=== PATIENT | male | born 1995 | race Caucasian/White ===

== ENCOUNTER 2017-05-01 18:39 | Emergency (ER) | payer BC ==
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
--- NOTE | 2017-05-01 19:35 | RAD ---
INDICATION: Trauma. TECHNIQUE: 2 views of the right forearm and 4 views of the right hand were obtained. FINDINGS: There is a minimally displaced and slightly shortened fracture at the right ulnar diaphysis. On the lateral view the distal fracture pole is displaced approximately one cortex width in the palmar direction relative to the proximal fracture pole. The remaining visualized bones are otherwise intact and appropriately aligned. No acute fracture or dislocation is visualized overlying the right hand. IMPRESSION: Minimally displaced fracture of the ulnar diaphysis.
[2017-05-01 20:12] VITALS: BP 132/84
== END 2017-05-01 20:09 | disposition home or self-care (01) ==
LOC: UCEAST 18:39
DX: S52.601A Unspecified fracture of lower end of right ulna, initial encounter for closed fracture (principal); S60.511A Abrasion of right hand, initial encounter; S60.811A Abrasion of right wrist, initial encounter; S50.311A Abrasion of right elbow, initial encounter; V29.9XXA Motorcycle rider (driver) (passenger) injured in unspecified traffic accident, initial encounter; Y93.89 Activity, other specified; Y92.9 Unspecified place or not applicable; Z88.1 Allergy status to other antibiotic agents
CPT/HCPCS: 25605; 99203; G0463

== ENCOUNTER 2018-04-16 16:49 | Emergency (ER) | payer BC ==
[2018-04-16 16:57] VITALS: BP 123/70
--- NOTE | 2018-04-16 17:07 | ED ---
Throat Pain/Nasal Congestion - HPI Summary HPI Summary: 22-year-old male presents with cerumen impaction. He states he has a hearing test coming up so he wants to be able to hear out of his ears well. He denies any pain. no sinus congestion. No fevers. No medical conditions. He denies any decrease in hearing. He states wants his ears irrigated. - History of Current Complaint Chief Complaint: UCEar Time Seen by Provider: 04/16/18 16:59 - Allergies/Home Medications Allergies/Adverse Reactions: Allergies Allergy/AdvReac Type Severity Reaction Status Date / Time amoxicillin Allergy Rash Verified 04/16/18 16:57 PMH/Surg Hx/FS Hx/Imm Hx Endocrine/Hematology History: Denies: Hx Anticoagulant Therapy Cardiovascular History: Denies: Hx Myocardial Infarction Infectious Disease History: No Infectious Disease History: Denies: Traveled Outside the [place] in Last 30 Days - Family History Known Family History: Negative: Diabetes - Social History Alcohol Use: None Substance Use Type: Reports: None Smoking Status (MU): Never Smoked Tobacco Review of Systems Negative: Fever Positive: Other - cerumen impaction Negative: Chest Pain Negative: Shortness Of Breath All Other Systems Reviewed And Are Negative: Yes Physical Exam Triage Information Reviewed: Yes Vital Signs On Initial Exam: Initial Vitals Temp Pulse Resp BP Pulse Ox 98.6 F 72 16 123/70 98 04/16/18 16:50 04/16/18 16:50 04/16/18 16:50 04/16/18 16:50 04/16/18 16:50 Vital Signs Reviewed: Yes Appearance: Positive: Well-Appearing Skin: Positive: Warm, Dry Head/Face: Positive: Normal Head/Face Inspection Eyes: Positive: Normal, Conjunctiva Clear ENT: Positive: Pharynx normal, Other - cerumen impaction bilateral ears Respiratory/Lung Sounds: Positive: Clear to Auscultation, Breath Sounds Present Cardiovascular: Positive: Normal, RRR Musculoskeletal: Positive: Normal Neurological: Positive: Normal Psychiatric: Positive: Normal Diagnostics - Vital Signs Vital Signs Temp Pulse Resp BP Pulse Ox 04/16/18 16:50 98.6 F 72 16 123/70 98 - Laboratory Lab Statement: Any lab studies that have been ordered have been reviewed, and results considered in the medical decision making process. EENT Course/Dx - Course Course Of Treatment: 22-year-old male presents with cerumen impaction. He states he has a hearing test coming up so he wants to be able to hear out of his ears well. He denies any pain. no sinus congestion. No fevers. No medical conditions. He denies any decrease in hearing. He states wants his ears irrigated. on exam has cerumen impaction bilateral ears. nurse irrigated ears and can now see normal TM. will place on debrox. patient understand and agrees with plan. - Differential Diagnoses Differential Diagnoses: Cerumen Impaction, Otitis Externa, Otitis Media - Diagnoses Provider Diagnoses: Cerumen impaction Discharge - Sign-Out/Discharge Documenting (check all that apply): Patient Departure - Discharge Plan Condition: Good Disposition: HOME Prescriptions: Carbamide Peroxide 6.5% OTIC* [DEBROX 6.5% Otic*] 5 drop BOTH EARS BID #1 bottle Patient Education Materials: Cerumen Impaction (ED) Referrals: [facility] [place] [facility] [Outside] Additional Instructions: Use debrox: instill 5 to 10 drops twice daily up to 4 days. est care with primary Return to ED if develop any new or worsening symptoms - Billing Disposition and Condition Condition: GOOD Disposition: Home
== END 2018-04-16 17:33 | disposition home or self-care (01) ==
LOC: UCEAST 16:49
DX: H61.23 Impacted cerumen, bilateral (principal); Z88.0 Allergy status to penicillin
CPT/HCPCS: 99213; G0463